=== PATIENT | male | born 1965 | race Two or more races ===

== ENCOUNTER 2024-08-05 14:57 | Emergency (ER) | payer SELFPAY ==
[~2024-08-05] VITALS: Ht 170.2 cm; Wt 103.4 kg
[2024-08-05] MEDS ORDERED: KETOROLAC TROMETHAMINE INJ 60 MG/2 ML VIAL IM ONE (16:17)
[2024-08-05] MEDS ORDERED: METHOCARBAMOL (500MG) 500 MG TABLET ONE (16:18)
[2024-08-05] MEDS: METHOCARBAMOL (500MG) 500 MG TABLET PO ONE (16:24)
[2024-08-05] MEDS: KETOROLAC TROMETHAMINE INJ 60 MG/2 ML VIAL IM ONE (16:24)
[2024-08-05] MEDS ORDERED: METH-647 PO (17:12)
[2024-08-05] MEDS ORDERED: IBUP-1490 PO (17:12)
[2024-08-05 17:49] VITALS: BP 128/70; TEMP 98.3; O2SAT 99
== END 2024-08-05 17:51 | disposition home or self-care (01) ==
LOC: ER 15:01
DX: S39.012A Strain of muscle, fascia and tendon of lower back, initial encounter (principal); X58.XXXA Exposure to other specified factors, initial encounter; Y93.89 Activity, other specified; Y92.89 Other specified places as the place of occurrence of the external cause; Y99.8 Other external cause status
CPT/HCPCS: 99285; 72131; 96372; J1885